=== PATIENT | female | born 1990 ===

== ENCOUNTER 2017-08-19 09:14 | Emergency (ER) | payer MEDICAID ==
[2017-08-19 09:40] VITALS: BP 121/82; PULSE 73; TEMP 98; O2SAT 100; BMI 36.1
--- NOTE | 2017-08-19 11:00 | ED PDOC ---
HPI: Headache Time Seen by Provider: 08/19/17 10:32 Chief Complaint (Nursing): Headache Chief Complaint (Provider): right sided headache History Per: Patient Additional Complaint(s): 26-year-old female presents to emergency department with right sided headache that started 3 weeks ago. Patient has been taking Tylenol, Advil and Excedrin but nothing has helped the pain. She denies vision changes, vomiting or dizziness but she has had mild nausea. Patient states she has never had a headache that has lasted this long. She states this is not the worst headache of her life. Patient rates current headache as a 9 out of 10. No recent trauma. Patient has history of migraines but states she has never had localized pain to right side of head with previous migraines. PMD: none Past Medical History Reviewed: Historical Data, Nursing Documentation, Vital Signs Vital Signs: Last Vital Signs Temp 98 F 08/19/17 09:38 Pulse 73 08/19/17 09:38 Resp BP 121/82 08/19/17 09:38 Pulse Ox 100 08/19/17 09:38 - Medical History PMH: Migraine - Surgical History Surgical History: (x 1) - Family History Family History: States: No Known Family Hx - Living Arrangements Living Arrangements: With Family - Social History Current smoker - smoking cessation education provided: No Alcohol: None Drugs: Denies - Home Medications Home Medications: Ambulatory Orders Medication Instructions Recorded Cephalexin [Keflex] 500 mg PO TID #21 cap 04/25/13 Gildess Fe 07/27 20 Mcg-75 mg-1 mg 04/25/13 Ibuprofen [Motrin] 600 mg PO Q6H PRN #15 tab 04/25/13 Famotidine/Ca Carb/Mag Hydrox 1 each PO BID #25 tab.chew 08/25/16 [Pepcid Complete Tablet Chew] Ondansetron ODT [Zofran ODT] 8 mg PO Q8H #12 odt 08/25/16 Metoclopramide [Reglan] 10 mg PO Q6 PRN #20 tab 08/19/17 Naproxen [Naprosyn] 500 mg PO BID #20 tab 08/19/17 - Allergies Allergies/Adverse Reactions: Allergies Allergy/AdvReac Type Severity Reaction Status Date / Time No Known Allergies Allergy Unverified 04/25/13 10:50 Review of Systems ROS Statement: Except As Marked, All Systems Reviewed And Found Negative Constitutional: Negative for: Fever, Chills, Weakness Cardiovascular: Negative for: Chest Pain Respiratory: Negative for: Cough Gastrointestinal: Positive for: Nausea. Negative for: Vomiting, Abdominal Pain , Diarrhea Neurological: Positive for: Headache (x 3 weeks). Negative for: Dizziness Physical Exam - Reviewed Nursing Documentation Reviewed: Yes Vital Signs Reviewed: Yes - Physical Exam Appears: Positive for: Well, Non-toxic, No Acute Distress Head Exam: Positive for: ATRAUMATIC, NORMAL INSPECTION Skin: Negative for: Rash Eye Exam: Positive for: Normal appearance ENT: Positive for: Normal ENT Inspection Neck: Positive for: Normal Cardiovascular/Chest: Positive for: Regular Rate, Rhythm Respiratory: Positive for: Normal Breath Sounds Neurologic/Psych: Positive for: Alert, signal constructor II-XII (grosly intact), Oriented, Gait (steady). Negative for: Motor/Sensory Deficits, Aphasia, Facial Droop - Laboratory Results Urine POC: Negative - ECG O2 Sat by Pulse Oximetry: 100 Pulse Ox Interpretation: Normal - Other Rad CT head X-Ray: Read By Radiologist X-Ray Interpretation: no acute finding Medical Decision Making Medical Decision Makin26 year old female with headache for [address] head IM reglan IM toradol Patient feels better after medications were given. She states her headache is now a 2 out of 10. Patient is aware of CT results. All questions answered. Prescriptions provided for Naprosyn and Reglan. Patient was referred to neurologist regional operations director for follow up. Disposition - Clinical Impression Clinical Impression: Headache - Patient ED Disposition Is Patient to be Admitted: No Counseled Patient/Family Regarding: Studies Performed, Diagnosis, Need For Followup, Rx Given - Disposition Referrals: Mika Reed MD [Medical Doctor] - Disposition: Routine/Home Disposition Time: 12:51 Condition: STABLE Additional Instructions: Take prescription medications as directed as needed for headache pain. Plenty of fluids. Follow up with primary doctor or neurologist for any persistent symptoms. Prescriptions: Metoclopramide [Reglan] 10 mg PO Q6 PRN #20 tab PRN Reason: Nausea/Vomiting Naproxen [Naprosyn] 500 mg PO BID #20 tab Instructions: General Headache (ED) Forms: [employer] (Swedish)
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
== END 2017-08-19 13:00 | disposition home or self-care (01) ==
LOC: H.ER 09:14
DX: R51 Headache (principal)
CPT/HCPCS: 70450; 81025; 96372; 99284; J1885; J2765

== ENCOUNTER 2017-11-11 12:09 | Emergency (ER) | payer OTHER, MEDICAID ==
[2017-11-11 12:10] VITALS: BMI 36.1
[2017-11-11 12:24] VITALS: BP 108/73; PULSE 66; RESP 18; TEMP 98.1; O2SAT 99
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
--- NOTE | 2017-11-11 14:04 | RAD ---
PROCEDURE: Cervical Spine Radiographs. HISTORY: Pain. COMPARISON: None. FINDINGS: BONES: Reversal of the anatomic lordosis with kyphosis. Degree: Mild. No fracture. Dens Intact. DISC SPACES: Normal. SOFT TISSUES: Normal. No prevertebral soft tissue swelling. OTHER FINDINGS: None. IMPRESSION: No acute findings related to/accounting for the clinical presentation. Additional benign and/or incidental findings described above. Concordant results with the preliminary interpretation rendered by the emergency department physician procedure.
== END 2017-11-11 14:02 | disposition home or self-care (01) ==
LOC: H.ER 12:09
DX: S13.4XXA Sprain of ligaments of cervical spine, initial encounter (principal); S39.012A Strain of muscle, fascia and tendon of lower back, initial encounter; S20.219A Contusion of unspecified front wall of thorax, initial encounter; V43.62XA Car passenger injured in collision with other type car in traffic accident, initial encounter; Y92.410 Unspecified street and highway as the place of occurrence of the external cause

== ENCOUNTER 2018-08-02 17:11 | Emergency (ER) | payer SELFPAY ==
[2018-08-02 17:11] VITALS: BMI 36.1
[2018-08-02] MEDS ORDERED: Amoxicillin-Clav 500-125 mg Tab PO STA (18:25)
[2018-08-02] MEDS ORDERED: Naproxen 500 MG TAB PO ONE ×2 (18:25→19:01)
--- NOTE | 2018-08-02 18:47 | ED PDOC ---
HPI: Headache Time Seen by Provider: 08/02/18 17:40 Chief Complaint (Nursing): Headache History Per: Patient Additional Complaint(s): Pt. states for the past week she's had cough/congestion x 1 week and 2 days ago she developed b/l facial pain (worse when bending neck forward). Reports facial pain radiates to the back of her head and is associated with nausea. Denies fever, chills, head injury, LOC, vomiting, rash, recent travel. Past Medical History Reviewed: Historical Data, Nursing Documentation, Vital Signs Vital Signs: Last Vital Signs Temp 98.5 F 08/02/18 17:23 Pulse 69 08/02/18 17:23 Resp 16 08/02/18 17:23 BP 104/72 08/02/18 17:23 Pulse Ox 99 08/02/18 17:23 - Medical History PMH: Migraine Denies: Chronic Kidney Disease - Surgical History Surgical History: (x 1) - Family History Family History: States: No Known Family Hx - Immunization History Hx Tetanus Toxoid Vaccination: No Hx Influenza Vaccination: No Hx Pneumococcal Vaccination: No - Home Medications Home Medications: Ambulatory Orders Medication Instructions Recorded Cephalexin [Keflex] 500 mg PO TID #21 cap 04/25/13 Gildess Fe 07/27 20 Mcg-75 mg-1 mg 04/25/13 Ibuprofen [Motrin] 600 mg PO Q6H PRN #15 tab 04/25/13 Famotidine/Ca Carb/Mag Hydrox 1 each PO BID #25 tab.chew 08/25/16 [Pepcid Complete Tablet Chew] Ondansetron ODT [Zofran ODT] 8 mg PO Q8H #12 odt 08/25/16 Metoclopramide [Reglan] 10 mg PO Q6 PRN #20 tab 08/19/17 Naproxen [Naprosyn] 500 mg PO BID #20 tab 08/19/17 Cyclobenzaprine [Cyclobenzaprine 10 mg PO TID PRN #20 tab 11/11/17 HCl] Naproxen [Naprosyn] 500 mg PO BID #20 tab 11/11/17 Amoxicillin/Clavulanate [Augmentin 1 tab PO BID #19 tab 08/02/18 500 MG-125 MG] Fluticasone Propionate [Flonase] 2 spr NS DAILY PRN #1 bottle 08/02/18 Naproxen [Naprosyn] 500 mg PO BID PRN #10 tab 08/02/18 - Allergies Allergies/Adverse Reactions: Allergies Allergy/AdvReac Type Severity Reaction Status Date / Time No Known Allergies Allergy Verified 08/02/18 17:21 Review of Systems ROS Statement: Except As Marked, All Systems Reviewed And Found Negative ENT: Positive for: Nose Congestion Respiratory: Positive for: Cough Neurological: Positive for: Headache Physical Exam - Physical Exam Appears: Positive for: Well, Non-toxic, No Acute Distress Head Exam: Positive for: ATRAUMATIC, NORMAL INSPECTION, NORMOCEPHALIC Skin: Positive for: Normal Color, Warm. Negative for: Rash Eye Exam: Positive for: EOMI, Normal appearance, PERRL ENT: Positive for: TM Is/Are (non-erythematous, non-bulging b/l), Sinus Pain/Drainage (b/l malar sinus tenderness), Nasal Congestion. Negative for: Pharyngeal Erythema, Tonsillar Exudate, Tonsillar Swelling Neck: Positive for: Normal, Painless ROM Cardiovascular/Chest: Positive for: Regular Rate, Rhythm Respiratory: Positive for: Normal Breath Sounds. Negative for: Respiratory Distress Gastrointestinal/Abdominal: Positive for: Normal Exam, Soft. Negative for: Tenderness, Distended, Guarding Neurologic/Psych: Positive for: Alert, Oriented (x3), Gait (steady, unassisted). Negative for: Aphasia, Facial Droop - ECG O2 Sat by Pulse Oximetry: 99 - Progress ED Course And Treament: Naproxen 500mg PO, augmentin 500mg PO ordered. On re-evaluation, pt. reports headache has improved. Repeat neuro exam is non- focal. Disposition - Clinical Impression Clinical Impression: Sinusitis - Patient ED Disposition Is Patient to be Admitted: No - Disposition Referrals: [facility] [Outside] Disposition: Routine/Home Disposition Time: 19:25 Condition: IMPROVED Additional Instructions: FOLLOW UP WITH [facility] FOR FURTHER EVALUATION RETURN TO ED IMMEDIATELY IF SYMPTOMS WORSEN GIOVANNI YUNG, thank you for letting us take care of you today. Your provider was Dayana Rodriguez MD and you were treated for MIGRAINE/NAUSEA/DEHYDRATED/VOMITING. The emergency medical care you received today was directed at your acute symptoms. If you were prescribed any medication, please fill it and take as directed. It may take several days for your symptoms to resolve. Return to the Emergency Department if your symptoms worsen, do not improve, or if you have any other problems. Please contact your doctor or call one of the physicians/clinics you have been referred to that are listed on the Patient Visit Information form that is included in your discharge packet. Bring any paperwork you were given at discharge with you along with any medications you are taking to your follow up visit. Our treatment cannot replace ongoing medical care by a primary care provider outside of the emergency department. Thank you for allowing the [facility] team to be part of your care today. If you had an X-Ray or CT scan: A Radiologist will review the ED reading if any change in treatment is needed we will contact you. If you had a blood, urine, or wound culture: It will take several days for the results, if any change in treatment is needed we will contact you. If you had an STI test: It will take 48 hours for the results. Please call after 1 week if you have not heard back. Prescriptions: Amoxicillin/Clavulanate [Augmentin 500 MG-125 MG] 1 tab PO BID #19 tab Fluticasone Propionate [Flonase] 2 spr NS DAILY PRN #1 bottle PRN Reason: Allergy Symptoms Naproxen [Naprosyn] 500 mg PO BID PRN #10 tab PRN Reason: Pain Instructions: Sinusitis, Adult (DC) Forms: [employer] (Tajik)
[2018-08-02] MEDS ORDERED: Amoxicillin-Clav 500-125 mg Tab PO ONE (19:03)
[2018-08-02 21:57] VITALS: BP 91/54; PULSE 72; RESP 18; TEMP 97.9; O2SAT 97
== END 2018-08-02 21:57 | disposition home or self-care (01) ==
LOC: H.ER 17:11
DX: J32.9 Chronic sinusitis, unspecified (principal)

== ENCOUNTER 2018-10-12 21:10 | Emergency (ER) | payer SELFPAY ==
[2018-10-12 21:29] VITALS: BMI 37.0
[2018-10-12 21:31] VITALS: RESP 18
[2018-10-12] MEDS ORDERED: Sodium Chloride 0.9% 1,000 ML IV STA (21:50)
[2018-10-12] MEDS ORDERED: Dexamethasone 10 MG in Sodium Chloride 0.9% 50 ML IV STA (21:50)
--- NOTE | 2018-10-12 21:52 | ED PDOC ---
HPI: General Adult Time Seen by Provider: 10/12/18 21:40 Chief Complaint (Nursing): Flu-like Symptoms Chief Complaint (Provider): Flu-like Symptoms History Per: Patient History/Exam Limitations: no limitations Onset/Duration Of Symptoms: Days (x2) Current Symptoms Are (Timing): Still Present Additional Complaint(s): 28 year old female presents to the ED for evaluation of fever, chills, body aches, sore throat, and shortness of breath for the past two days unrelieved by Ibuprofen and Tylenol, last dose of meds at 1800. Otherwise denies sick contacts, cough, congestion, and chest pain. PMD: Yeyo Otto Past Medical History Reviewed: Historical Data, Nursing Documentation, Vital Signs Vital Signs: Last Vital Signs Temp 102.7 F H 10/12/18 21:29 Pulse 92 H 10/12/18 21:29 Resp 18 10/12/18 21:29 BP 127/72 10/12/18 21:29 Pulse Ox 100 10/12/18 21:29 - Medical History PMH: Migraine Denies: Chronic Kidney Disease - Surgical History Surgical History: (x 1) - Family History Family History: States: Unknown Family Hx - Social History Current smoker - smoking cessation education provided: No - Immunization History Hx Tetanus Toxoid Vaccination: No Hx Influenza Vaccination: No Hx Pneumococcal Vaccination: No - Home Medications Home Medications: Ambulatory Orders Medication Instructions Recorded Cephalexin [Keflex] 500 mg PO TID #21 cap 04/25/13 Gildess Fe 07/27 20 Mcg-75 mg-1 mg 04/25/13 Ibuprofen [Motrin] 600 mg PO Q6H PRN #15 tab 04/25/13 Famotidine/Ca Carb/Mag Hydrox 1 each PO BID #25 tab.chew 08/25/16 [Pepcid Complete Tablet Chew] Ondansetron ODT [Zofran ODT] 8 mg PO Q8H #12 odt 08/25/16 Metoclopramide [Reglan] 10 mg PO Q6 PRN #20 tab 08/19/17 Naproxen [Naprosyn] 500 mg PO BID #20 tab 08/19/17 Cyclobenzaprine [Cyclobenzaprine 10 mg PO TID PRN #20 tab 11/11/17 HCl] Naproxen [Naprosyn] 500 mg PO BID #20 tab 11/11/17 Amoxicillin/Clavulanate [Augmentin 1 tab PO BID #19 tab 08/02/18 500 MG-125 MG] Fluticasone Propionate [Flonase] 2 spr NS DAILY PRN #1 bottle 08/02/18 Naproxen [Naprosyn] 500 mg PO BID PRN #10 tab 08/02/18 Ibuprofen [Motrin] 600 mg PO TID 7 Days tab 10/12/18 Penicillin VK [Penicillin VK Tab] 500 mg PO BID 7 Days tab 10/12/18 predniSONE [predniSONE Tab] 20 mg PO BID 5 Days tab 10/12/18 - Allergies Allergies/Adverse Reactions: Allergies Allergy/AdvReac Type Severity Reaction Status Date / Time No Known Allergies Allergy Verified 10/12/18 21:28 Review of Systems ROS Statement: Except As Marked, All Systems Reviewed And Found Negative Constitutional: Positive for: Fever, Chills, Other (body aches) ENT: Positive for: Throat Pain. Negative for: Nose Congestion Cardiovascular: Negative for: Chest Pain Respiratory: Positive for: Shortness of Breath. Negative for: Cough Physical Exam - Reviewed Nursing Documentation Reviewed: Yes Vital Signs Reviewed: Yes - Physical Exam Appears: Positive for: No Acute Distress Head Exam: Positive for: ATRAUMATIC, NORMOCEPHALIC Skin: Positive for: Normal Color, Warm Eye Exam: Positive for: Normal appearance, EOMI, PERRL ENT: Positive for: Tonsillar Exudate (more on right side). Negative for: Other (uvular deviation) Neck: Positive for: Normal, Painless ROM, Supple Cardiovascular/Chest: Positive for: Regular Rate, Rhythm Respiratory: Positive for: Normal Breath Sounds. Negative for: Respiratory Distress Gastrointestinal/Abdominal: Positive for: Normal Exam, Soft. Negative for: Tenderness Back: Positive for: Normal Inspection Extremity: Positive for: Normal ROM (all extremities) Neurological/Psych: Positive for: Awake, Alert, Oriented (x3). Negative for: Motor/Sensory Deficits - Laboratory Results Result Diagrams: 10/12/18 22:47 10/12/18 22:47 Interpretation Of Abn Labs: strep pos; 13.5 wbc - ECG O2 Sat by Pulse Oximetry: 100 (RA) Pulse Ox Interpretation: Normal - Radiology X-Ray: Interpreted by Me, Viewed By Me X-Ray Interpretation: No Acute Disease - Progress ED Course And Treament: 2324: Stable. AAOx3. Pain free. Tolerated PO. FU with pcp. Medical Decision Making Medical Decision Making: Time: 2148 Initial Impression: r/o strep, r/o influenza Initial Plan: --BMP --Trop I --U-preg --CBC with differential --CXR --Decadron Inj 10mg NS IV --Normal saline IV --Toradol 15mg IVP --Rapid strep --Influenza A B swab --Reevaluation Scribe Attestation: Documented by Sheryl Holloway, acting as a scribe for Yang Oswald MD. Provider Scribe Attestation: All medical record entries made by the Scribe were at my direction and personally dictated by me. I have reviewed the chart and agree that the record accurately reflects my personal performance of the history, physical exam, medical decision making, and the department course for this patient. I have also personally directed, reviewed, and agree with the discharge instructions and disposition. Disposition - Clinical Impression Clinical Impression: Pharyngitis, Fever in adult - Patient ED Disposition Is Patient to be Admitted: No Counseled Patient/Family Regarding: Studies Performed, Diagnosis, Need For Followup, Rx Given - Disposition Referrals: Yeyo Otto MD [Primary Care Provider] - 10/13/18 Disposition: Routine/Home Disposition Time: 23:24 Condition: STABLE Additional Instructions: Return if not better in 3 days. Prescriptions: Ibuprofen [Motrin] 600 mg PO TID 7 Days tab Penicillin VK [Penicillin VK Tab] 500 mg PO BID 7 Days tab predniSONE [predniSONE Tab] 20 mg PO BID 5 Days tab Instructions: Fever, Adult (DC), Strep Throat (DC) Forms: [employer] (Slovenian), [facility] ED School/Work Excuse
[2018-10-12 22:54] LABS: BASO % 0.4 % (0.0-2.0); EOS % 0.1 % (0.0-4.0); HEMOGLOBIN 12.3 g/dL (12.0-16.0); LYMPH # 1.1 K/uL (1.0-4.3); LYMPH % 7.8 % (20.0-40.0); MEAN CELL VOLUME 76.3 fl (81.0-99.0); MEAN CORPUSCULAR HEMOGLOBIN 25.2 pg (27.0-31.0); MEAN PLATELET VOLUME 8.1 fl (7.2-11.7); MONO # 1.5 K/uL (0.0-0.8); MONO % 11.3 % (0.0-10.0); NEUT # 10.9 K/uL (1.8-7.0); NEUT % 80.4 % (50.0-75.0); PLATELET COUNT 252 K/uL (130-400); RBC 4.88 Mil/uL (3.80-5.20); RED CELL DISTRIBUTION WIDTH 15.1 % (11.5-14.5); WHITE BLOOD COUNT 13.5 K/uL (4.8-10.8)
[2018-10-12 23:05] LABS: BLOOD UREA NITROGEN 10 mg/dl (7-17); CALCIUM 9.4 mg/dL (8.4-10.2); GFR NON-AFRICAN AMERICAN > 60
[2018-10-13 00:13] VITALS: BP 113/64; PULSE 94; TEMP 101; O2SAT 98
[2018-10-13 00:19] LABS: ANISOCYTOSIS SLIGHT; BANDS 5 % (0-2); LYMPHOCYTE 10 % (20-50); MICROCYTOSIS SLIGHT; MONOCYTE 12 % (0-10); NEUTROPHIL 73 % (42-75); PLATELET ESTIMATE NORMAL (NORMAL); TOTAL CELLS COUNTED 100
--- NOTE | 2018-10-13 09:37 | RAD ---
Date of service: 10/12/2018 HISTORY: dyspnea COMPARISON: 11/11/2017 FINDINGS: LUNGS: The lungs are well inflated and clear. PLEURA: No pleural effusions or pneumothorax. CARDIOVASCULAR: The heart is normal in size. No aortic atherosclerotic calcifications present. OSSEOUS STRUCTURES: Within normal limits for the patient's age. VISUALIZED UPPER ABDOMEN: Normal. OTHER FINDINGS: None. IMPRESSION: No active pulmonary disease.
== END 2018-10-13 00:15 | disposition home or self-care (01) ==
LOC: H.ER 21:10
DX: J02.9 Acute pharyngitis, unspecified (principal); R50.9 Fever, unspecified
CPT/HCPCS: 71045; 80048; 81025; 84484; 85025; 87430; 87804; 96374; 96375; 96376; 99284; J1100; J1885; J7030